=== PATIENT | female | born 2000 | race Caucasian/White ===

== ENCOUNTER 2019-01-03 03:15 | Observation (INO) | payer OTHER ==
--- NOTE | 2019-01-03 03:29 | EDPHY ---
H & P Stated Complaint: Abdominal Pain Time Seen by Provider: 01/03/19 03:28 HPI/ROS: HPI CHIEF COMPLAINT: Abdominal pain HISTORY OF PRESENT ILLNESS: Otherwise healthy 18-year-old female, presents to the emergency room with abdominal pain. States started an hour ago woke from sleep it is in the middle of her abdomen. She describes as sharp stabbing pain. Mid abdomen. Nonradiating. Work from sleep. Denies any diarrhea, denies vomiting. Denies chest pain shortness of breath denies fever. Denies urinary symptoms. Currently not on her menstrual cycle. Has an IUD. Past Medical History: Depression Past Surgical History: No recent surgery denies history of abdominal surgery Social History: Denies drugs alcohol tobacco. Family History: Noncontributory ROS REVIEW OF SYSTEMS: 10 Systems were reviewed and negative with the exception of the elements mentioned in the history of present illness. Exam Constitutional triage nursing summary reviewed, vital signs reviewed, awake/ alert. Eyes normal conjunctivae and sclera, EOMI, PERRLA. HENT normal inspection, atraumatic, moist mucus membranes, no epistaxis, neck supple/ no meningismus, no raccoon eyes. Respiratory clear to auscultation bilaterally, normal breath sounds, no respiratory distress, no wheezing. Cardiovascular rate normal, regular rhythm, no murmur, no edema, distal pulses normal. Gastrointestinal mild tenderness to palpation periumbilical, no peritoneal signs, no rebound, no guarding, normal bowel sounds, no distension, no pulsatile mass. Genitourinary no CVA tenderness. Musculoskeletal no midline vertebral tenderness, full range of motion, no calf swelling, no tenderness of extremities, no meningismus, good pulses, neurovascularly intact. Skin pink, warm, & dry, no rash, skin atraumatic. Neurologic awake, alert and oriented x 3, AAOx3, moves all 4 extremities equally, motor intact, sensory intact, CN II-XII intact, normal cerebellar, normal vision, normal speech. Psychiatric normal mood/affect. Heme/Lymph/Immune no lymphadenopathy. Differential Diagnosis: Differential diagnosis includes but is not limited to and in no particular order: Bowel obstruction, appendicitis, gallbladder disease, diverticulitis, colitis, enteritis, perforated viscus, gastritis, GERD , esophagitis, urinary tract infection, pyelonephritis, kidney stones Medical Decision Making: Plan for this patient IV establishment IV fluid bolus , IV Dilaudid 0.5 mg for pain control, IV Zofran 4 mg for nausea basic blood work, re-examination. Re-evaluation: 521: CT scan abdomen pelvis with without IV contrast faxed to me by [facility]. CT scan results back to me at 4:59 a.m. Possible thickened appendix seen on axial images soon there is a dilated fluid-filled appendix measures 8.5 mm with small appendical with concerning for possible appendicitis. I did go reexamine the patient's abdomen at this time 5:23 a.m. She does still have periumbilical abdominal pain moderately tender on exam. CT scan findings concerning for acute appendicitis. I have updated the patient IV Invanz has been ordered Plan for surgical consultation 545: Spoke with Dr. CELESTE Metzger. Discussed case in detail. He will consult see the patient. Patient made NPO . Patient given IV Invanz Patient admitted to Dr. Metzger. Source: Patient - Personal History LMP (Females 10-55): 1-7 Days Ago Current Tetanus/Diphtheria Vaccine: Yes Current Tetanus Diphtheria and Acellular Pertussis (TDAP): Yes - Medical/Surgical History Hx Asthma: No Hx Chronic Respiratory Disease: No Hx Diabetes: No Hx Cardiac Disease: No Hx Renal Disease: No Hx Cirrhosis: No Hx Alcoholism: No Hx HIV/AIDS: No Hx Splenectomy or Spleen Trauma: No Other PMH: tubercolosis, pylonephritis X 2, tonsilectomy - Social History Smoking Status: Current some day smoker Constitutional: Initial Vital Signs Temperature (C) 37.0 C 01/03/19 03:17 Heart Rate 87 01/03/19 03:17 Respiratory Rate 18 01/03/19 03:17 Blood Pressure 130/79 H 01/03/19 03:17 O2 Sat (%) 96 01/03/19 03:17 O2 Delivery Mode Room Air Allergies/Adverse Reactions: No Known Allergies Allergy (Verified 01/03/19 10:16) Home Medications: Medication Instructions Recorded FLUoxetine [Prozac 10 MG (*)] 10 mg PO DAILY 01/03/19 FLUoxetine [Prozac 20 MG (*)] 20 mg PO DAILY 01/03/19 Herbals/Supplements -Info Only 1 ea PO DAILY 01/03/19 Ibuprofen [Motrin (*)] 200 mg PO DAILY PRN 01/03/19 Levonorgestrel [MIRENA] 1 each IY .[id number] 01/03/19 oxyCODONE/APAP 5/325 [Percocet 1 - 2 tab PO Q4 PRN tab 01/03/19 5/325 (*)] Medical Decision Making - Diagnostics Imaging Results: Imaging Impressions Abdomen CT 01/03/19 03:52 Impression: 1. Mild appendicitis with small free fluid in the low pelvis. No abscess or evidence of perforation. 2. Well-positioned intrauterine device. Preliminary report given by [facility] to Emergency Department physician, Solitario Bran MD, at 4:59 a.m. on 01/03/2019. Final report concurs with initial preliminary interpretation. - Data Points Laboratory Results: Laboratory Results 01/03/19 03:35 01/03/19 03:35 Medications Given: Discontinued Medications Bupivacaine HCl (Sensorcaine 0.5% Vial) Confirm Administered Dose 30 ml .ROUTE .STK-MED ONE Stop: 01/03/19 06:02 Last Admin: 01/03/19 07:11 Dose: 30 ml Cefazolin Sodium (Ancef Syringe) Confirm Administered Dose 1 gm .ROUTE .STK-MED ONE Stop: 01/03/19 06:03 Last Admin: 01/03/19 07:14 Dose: Not Given Heparin Sodium (Porcine) (Heparin Sodium) Confirm Administered Dose 2,000 unit .ROUTE .STK-MED ONE Stop: 01/03/19 06:02 Last Admin: 01/03/19 07:14 Dose: Not Given Hydromorphone HCl (Dilaudid) 0.5 mg IVP EDNOW ONE Stop: 01/03/19 03:38 Last Admin: 01/03/19 03:43 Dose: 0.5 mg Hydromorphone HCl (Dilaudid) 0.2 - 0.4 mg IVP Q2HRS PRN PRN Reason: Pain, Severe Unable to Take PO Stop: 01/13/19 07:26 Last Admin: 01/03/19 13:54 Dose: 0.2 mg Sodium Chloride (Ns) 1,000 mls @ 0 mls/hr IV EDNOW ONE; Wide Open PRN Reason: Protocol Stop: 01/03/19 03:38 Last Admin: 01/03/19 03:43 Dose: 1,000 mls Ertapenem 1 gm/ Sodium (Chloride) 100 mls @ 200 mls/hr IV EDNOW ONE PRN Reason: Protocol Stop: 01/03/19 05:51 Last Admin: 01/03/19 05:45 Dose: 100 mls Potassium Chloride/Dextrose/Sod Cl (D5w 1/2 Ns W/ 20 Kcl/L) 1,000 mls @ 75 mls/ hr IV CONT KARLEY Stop: 07/02/19 07:29 Last Admin: 01/03/19 12:00 Dose: 1,000 mls Ondansetron HCl (Zofran) 4 mg IVP EDNOW ONE Stop: 01/03/19 03:38 Last Admin: 01/03/19 03:43 Dose: 4 mg Oxycodone/Acetaminophen (Percocet 5/325) 1 - 2 tab PO Q4 PRN PRN Reason: Pain, Severe Able to Take PO Stop: 01/13/19 07:26 Last Admin: 01/03/19 20:16 Dose: 2 tab Departure - Departure Disposition: [facility] Acute Clinical Impression: Acute appendicitis Qualifiers: Acute appendicitis type: with localized peritonitis Appendicitis gangrene presence: without gangrene Appendicitis perforation presence: without perforation Condition: Good
[2019-01-03] MEDS ORDERED: HYDROmorphONE/DILAUDID 2 MG/ML INJ IVP ONE (03:37)
[2019-01-03] MEDS ORDERED: NS 1,000 ML IV ONE (03:37)
[2019-01-03] MEDS ORDERED: ONDANSETRON 4 MG/2 ML VIAL IVP ONE (03:37)
[2019-01-03 03:46] LABS: PLATELET COUNT 283 10^3/uL (150-400)
[2019-01-03] MEDS ORDERED: IOHEXOL 350mgI/ML (OMNIPAQUE) 150 ML BTL IV ONE (04:04)
[2019-01-03] MEDS ORDERED: ERTAPENEM 1 GM in NS 100 ML IV ONE (05:22)
[2019-01-03] MEDS ORDERED: BUPIVACAINE 0.5% 30 ML SDV ONE (06:01)
[2019-01-03] MEDS ORDERED: HEPARIN 1000 UNIT/1 ML MDV ONE (06:01)
[2019-01-03] MEDS ORDERED: ceFAZolin 1 GM/5 ML SYR ONE (06:02)
[2019-01-03] MEDS ORDERED: fentaNYL 100 MCG/2 ML INJ ONE (06:38)
[2019-01-03] MEDS ORDERED: PROPOFOL/EMULSION 500 MG/50 ML BOTTLE IV ONE (06:38)
[2019-01-03] MEDS ORDERED: ROCURONIUM 50 MG/5 ML VIAL ONE (06:39)
[2019-01-03] MEDS ORDERED: DEXAMETHASONE 4 MG/ML VIAL ONE ×2 (06:39)
[2019-01-03] MEDS ORDERED: LIDOCAINE 2% 100 MG/5 ML SYR ONE (06:42)
--- NOTE | 2019-01-03 06:47 | PDGENHP ---
History & Physical Chief Complaint: rlq pain History of Present Illness: 18 FEMALE WITH SHORT HX OF ABDOMINAL PAIN ASSOCIATED WITH EMESIS AND INCREASED WITH MOVEMENT. WBC 15K. CT + FOR APPENDICITIS WITH APPENDICOLITH. SHE ALSO HAS IUD. NO DIARHEA, NO VAGINAL DISCHARGE. RISKS AND OPTIONS FULLY DISCUSSED. ADMIT FOR LAP APPE Pertinent Past, Social, Family History: PMH: TONSILLECTOMY, DEPRESSION. NKA. MEDS: PROZAC, MARLA IUD. ROS - 10 PT REVIEW EXCEPT FOR DEPRESSION. SOC : NONSMOKER. FAM: NONCONTRIBUTORY Relevant Physical Exam: GEN: HEALTHY 18 YO FEMALE IN NO ACUTE DISTRESS. HEENT: NONICTERIC, NO ORAL LESIONS,NO NODES, PERRLA. CHEST CLEAR. COR RR. ABD: SOFT , MILDLY DISTENDED, TENDER RLQ. EXTREM OK. NEURO PHYSIOLOGIC. PSYCH ALERT, COOPERATIVE, ORIENTED Cardiorespiratory Assessment: IMP: ATYPICAL ACUTE APPENDICITIS. PLAN: LAP APPE / RISKS AND OPTIONS FULLY DISCUSSED
[2019-01-03] MEDS ORDERED: KETOROLAC 30 MG/1 ML SDV ONE (07:01)
[2019-01-03] MEDS ORDERED: ONDANSETRON 4 MG/2 ML VIAL ONE (07:01)
--- NOTE | 2019-01-03 07:01 | PDANEPAE ---
ANE History of Present Illness appy for acute appendicitis ANE Past Medical History - Pulmonary History Hx Oxygen in Use at Home: No - Endocrine History Hx Diabetes: No ANE Review of Systems Review of Systems: - Exercise capacity Exercise capacity: >=4 METS ANE Patient History - Allergies Allergies/Adverse Reactions: No Known Allergies Allergy (Unverified 01/03/19 03:22) - Home Medications Home medications: home medication list seen and reviewed Home Medications: FLUoxetine 01/03/19 [Last Taken Unknown] - NPO status NPO Status: no food or drink >8 hours - Anes Hx Anes Hx: no prior problems - Smoking Hx Smoking Status: Current some day smoker - Alcohol Use Alcohol Use: Occasionally - Family Anes Hx Family Anes Hx: none ANE Labs/Vital Signs - Labs Result Diagrams: 01/03/19 03:35 01/03/19 03:35 - Vital Signs Blood Pressure: 115/67 Heart Rate: 79 Respiratory Rate: 16 O2 Sat (%): 97 Height: 170.18 cm Weight: 51.483 kg ANE Physical Exam - Airway Neck exam: FROM Mallampati Score: Class 1 Mouth exam: normal dental/mouth exam - Pulmonary Pulmonary: no respiratory distress - Cardiovascular Cardiovascular: regular rate and rhythym ANE Anesthesia Plan Anesthesia Plan: general endotracheal anesthesia Urgent/Emergent Case: Radha christine completed preop but documented later for safe timely pt care
[2019-01-03] MEDS ORDERED: SUGAMMADEX SODIUM 200 MG/2 ML VIAL IVP ONE (07:04)
[2019-01-03] MEDS ORDERED: DEXAMETHASONE 4 MG/ML VIAL IVP PRN (07:18)
[2019-01-03] MEDS ORDERED: fentaNYL 100 MCG/2 ML INJ IVP PRN (07:18)
[2019-01-03] MEDS ORDERED: ACETAMINOPHEN 500 MG TAB PO PRN (07:18)
[2019-01-03] MEDS ORDERED: METOCLOPRAMIDE 10 MG/2 ML VIAL IVP PRN (07:18)
[2019-01-03] MEDS ORDERED: HYDROCODONE/APAP 5/325 TAB PO PRN (07:18)
[2019-01-03] MEDS ORDERED: LR 500 ML IV PRN (07:18)
[2019-01-03] MEDS ORDERED: NALOXONE HCL 0.4 MG/ML INJ IVP PRN (07:18)
[2019-01-03] MEDS ORDERED: oxyCODONE IR 5 MG TAB PO PRN (07:18)
[2019-01-03] MEDS ORDERED: ALBUTEROL 3 ML DEYVIAL IH PRN (07:18)
[2019-01-03] MEDS ORDERED: ONDANSETRON 4 MG/2 ML VIAL IVP PRN ×2 (07:18→07:27)
[2019-01-03] MEDS ORDERED: PROMETHAZINE HCL 25 MG/ML INJ IVP PRN (07:18)
[2019-01-03] MEDS ORDERED: MEPERIDINE 25 MG/0.5 ML AMP IVP PRN (07:18)
[2019-01-03] MEDS ORDERED: PHENYLEPHRINE HCL 100 MCG/ML SYR IVP PRN (07:18)
[2019-01-03] MEDS ORDERED: LABETALOL HCL 5 MG/ML 20 ML MDV IVP PRN (07:18)
--- NOTE | 2019-01-03 07:26 | POSTOPPROG ---
Post Op Note Date of Operation: 01/03/19 Surgeon: Andrew Metzger Anesthesiologist: ASHLEY Anesthesia: GET(General Endotracheal) Pre-op Diagnosis: ACUTE APPENDICITIS Post-op Diagnosis: SAME Indication: PAIN Procedure: LAP APPE Findings: ACUTE SUPPURATIVE, NONPERFORATED APPENDICITIS Inf/Abcess present in the surg proc area at time of surgery?: Yes Depth: Organ Space EBL: Minimal Complications: 0 Specimen(s): APPENDIX
[2019-01-03] MEDS ORDERED: HYDROmorphONE/DILAUDID 1 MG/ML INJ IVP PRN (07:27)
[2019-01-03] MEDS ORDERED: ONDANSETRON DISINTEGRATING 4 MG TAB PO PRN (07:27)
[2019-01-03] MEDS ORDERED: D5W 1/2 NS W/ 20 KCl/L 1,000 ML IV SCH (07:30)
[2019-01-03] MEDS: OXYCODONE/APAP 5/325 TAB PO PRN ×4 (08:38→20:16)
--- NOTE | 2019-01-03 13:19 | POSTANESTH ---
Post Anesthetic Evaluation Cardiovascular Status: Normal, Stable Respiratory Status: Normal, Stable Level of Consciousness/Mental Status: Can Participate in Eval Pain Control: Adequate, Prn Tx Ordered Nausea/Vomiting Control: Adequate, Prn Tx Ordered Complications Possibly Related to Anesthesia: None Noted
[2019-01-03 16:45] VITALS: BP 107/72
--- NOTE | 2019-01-06 10:23 | GDS ---
[f rep st] DISCHARGE SUMMARY DISCHARGE NOTE: DISCHARGE DIAGNOSIS: Acute appendicitis. PROCEDURES: Abdominal CT scan. For full details, please see report. CONSULTATIONS: General Surgery by Dr. Metzger. HOSPITAL COURSE: This is a healthy 18-year-old female with a short history of abdominal pain associa jean with emesis who presented to the emergency department. A CT scan was positive for appendicitis w ith an appendicolith. Risks and options were fully discussed. Dr. Metzger took the patient to surgery for laparoscopic appendectomy. The patient tolerated the procedure well, and there were no complica tions. Later in the day, she tolerated a regular diet and was passing flatus. Her pain was controll ed on oral pain medication. She was ultimately discharged, the same day of surgery, home in good con dition with her mom. She was advised to follow up in our office in 2 weeks and to call with fever, c hills, worsening symptoms. PROCEDURES: Laparoscopic appendectomy. INTRAOPERATIVE FINDINGS: Acute suppurative, non-perforated appendicitis. /[id number]/MODL
== END 2019-01-03 20:27 | disposition home or self-care (01) ==
LOC: FOB 08:30
PROVIDERS: ADMIT Surgery; ATTEND Surgery
PROC: 0DTJ4ZZ Resection of Appendix, Percutaneous Endoscopic Approach (ICD-10-PCS; principal; 2019-01-03 06:30)
DX: K35.80 Unspecified acute appendicitis (principal); E86.9 Volume depletion, unspecified; F17.200 Nicotine dependence, unspecified, uncomplicated; F32.9 Major depressive disorder, single episode, unspecified; Z87.448 Personal history of other diseases of urinary system; Z97.5 Presence of (intrauterine) contraceptive device
CPT/HCPCS: 44970; 74177; 96361; 96365; 96375; 99285; G0378; J1100; J1170; J1335; J1885; J2001; J2405; J2704; J3010; Q9967

== ENCOUNTER 2019-02-03 20:14 | Emergency (ER) | payer OTHER ==
--- NOTE | 2019-02-03 20:55 | EDPHY ---
H & P Stated Complaint: R flank pain Time Seen by Provider: 02/03/19 20:54 HPI/ROS: CHIEF COMPLAINT: [ ] HISTORY OF PRESENT ILLNESS: [Need 4: Location, Duration, Severity, Quality, Context, Timing Modifying Factors, Associated S&S] REVIEW OF SYSTEMS: A comprehensive 10 point review of systems is otherwise negative aside from elements mentioned in the history of present illness. Source: Patient Exam Limitations: No limitations - Personal History LMP (Females 10-55): 1-7 Days Ago Current Tetanus/Diphtheria Vaccine: Yes - Medical/Surgical History Hx Asthma: No Hx Chronic Respiratory Disease: No Hx Diabetes: No Hx Cardiac Disease: No Hx Renal Disease: No Hx Cirrhosis: No Hx Alcoholism: No Hx HIV/AIDS: No Hx Splenectomy or Spleen Trauma: No Other PMH: tubercolosis, pylonephritis X 2, tonsilectomy, appy - Social History Smoking Status: Former smoker - Physical Exam Exam: General Appearance: [Alert, no distress] Eyes: [Pupils equal and round no pallor or injection] ENT, Mouth: [Mucous membranes moist] Respiratory: [There are no retractions, lungs are clear to auscultation] Cardiovascular: [Regular rate and rhythm] Gastrointestinal: [Abdomen is soft and nontender, no masses, bowel sounds normal] Neurological: [A&O, normal motor function, normal sensory exam, normal cranial nerves] Skin: [Warm and dry, no rashes] Musculoskeletal: [Neck is supple nontender] Extremities: [symmetrical, full range of motion] Psychiatric: [Patient is oriented X 3, there is no agitation] Constitutional: Initial Vital Signs Temperature (C) 36.6 C 02/03/19 20:19 Heart Rate 89 02/03/19 20:19 Respiratory Rate 18 02/03/19 20:19 Blood Pressure 113/64 02/03/19 20:19 O2 Sat (%) 98 02/03/19 20:19 O2 Delivery Mode Room Air Allergies/Adverse Reactions: No Known Allergies Allergy (Verified 01/03/19 10:16) Home Medications: Medication Instructions Recorded FLUoxetine [Prozac 10 MG (*)] 10 mg PO DAILY 01/03/19 FLUoxetine [Prozac 20 MG (*)] 20 mg PO DAILY 01/03/19 Herbals/Supplements -Info Only 1 ea PO DAILY 01/03/19 Ibuprofen [Motrin (*)] 200 mg PO DAILY PRN 01/03/19 Levonorgestrel [MIRENA] 1 each IY .[id number] 01/03/19 Medical Decision Making - Data Points Laboratory Results: 02/03/19 20:26 Urine Color COLORLESS Urine Appearance CLEAR Urine pH 8.0 H (5.0-7.5) Ur Specific Reeder 1.003 (1.002-1.030) Urine Protein NEGATIVE (NEGATIVE) Urine Ketones NEGATIVE (NEGATIVE) Urine Blood 2+ H (NEGATIVE) Urine Nitrate NEGATIVE (NEGATIVE) Urine Bilirubin NEGATIVE (NEGATIVE) Urine Urobilinogen NEGATIVE EU EU (0.2-1.0) Ur Leukocyte Esterase NEGATIVE (NEGATIVE) Urine RBC 5-10 /hpf H /hpf (0-3) Urine WBC 5-10 /hpf H /hpf (0-3) Ur Epithelial Cells TRACE /lpf /lpf (NONE-1+) Urine Mucus TRACE /lpf /lpf (NONE-1+) Urine Glucose NEGATIVE (NEGATIVE)
[2019-02-03] MEDS ORDERED: NS 1,000 ML IV ONE (20:56)
[2019-02-03] MEDS ORDERED: HYDROmorphONE/DILAUDID 2 MG/ML INJ IVP ONE (21:01)
[2019-02-03] MEDS ORDERED: HYDROmorphONE/DILAUDID 1 MG/ML INJ ONE (21:06)
[2019-02-03 21:27] LABS: PLATELET COUNT 235 10^3/uL (150-400)
[2019-02-03] MEDS ORDERED: KETOROLAC 15 MG/1 ML SDV IVP ONE (22:19)
[2019-02-03 22:28] VITALS: BP 134/66
--- NOTE | 2019-02-03 22:29 | EDPHY ---
H & P Stated Complaint: R flank pain Time Seen by Provider: 02/03/19 20:54 HPI/ROS: Chief complaint: Right flank pain History of present illness: This is a 18-year-old female who presents to the emergency department for right flank pain. She reports the onset of symptoms today. She reports right flank pain began and then she developed some discomfort with urination urinary frequency. She does have a history of urinary tract infections, however she usually gets urinary symptoms 1st and then the flank pain. She denies other associated signs or symptoms including no fevers, no nausea, vomiting or diarrhea, no abnormal vaginal discomfort or discharge. Review of systems: A 10 point review of systems was obtained and other than described above was negative - Personal History LMP (Females 10-55): 1-7 Days Ago Current Tetanus/Diphtheria Vaccine: Yes - Medical/Surgical History Hx Asthma: No Hx Chronic Respiratory Disease: No Hx Diabetes: No Hx Cardiac Disease: No Hx Renal Disease: No Hx Cirrhosis: No Hx Alcoholism: No Hx HIV/AIDS: No Hx Splenectomy or Spleen Trauma: No Other PMH: tubercolosis, pylonephritis X 2, tonsilectomy, appy - Social History Smoking Status: Former smoker - Physical Exam Exam: General Appearance: Alert, no distress. Eyes: Pupils equal and round no pallor or injection. ENT, Mouth: Mucous membranes moist. Respiratory: There are no retractions, lungs are clear to auscultation. Cardiovascular: Regular rate and rhythm. Gastrointestinal: Abdomen is soft and non tender, no masses, bowel sounds normal. Genitourinary: No CVA tenderness. Neurological: Alert, nontoxic. Skin: Warm and dry, no rashes. Musculoskeletal: Neck is supple non tender. Extremities are symmetrical, full range of motion. Psychiatric: Patient is oriented X 3, there is no agitation. Constitutional: Initial Vital Signs Temperature (C) 36.6 C 02/03/19 20:19 Heart Rate 89 02/03/19 20:19 Respiratory Rate 18 02/03/19 20:19 Blood Pressure 113/64 02/03/19 20:19 O2 Sat (%) 98 02/03/19 20:19 O2 Delivery Mode Room Air Allergies/Adverse Reactions: No Known Allergies Allergy (Verified 01/03/19 10:16) Home Medications: Medication Instructions Recorded FLUoxetine [Prozac 10 MG (*)] 10 mg PO DAILY 01/03/19 FLUoxetine [Prozac 20 MG (*)] 20 mg PO DAILY 01/03/19 Herbals/Supplements -Info Only 1 ea PO DAILY 01/03/19 Ibuprofen [Motrin (*)] 200 mg PO DAILY PRN 01/03/19 Levonorgestrel [MIRENA] 1 each IY .[id number] 01/03/19 Cephalexin [Keflex] 500 mg PO TID 10 Days cap 02/03/19 Medical Decision Making - Diagnostics Imaging Results: Imaging Impressions Abdomen/Pelvis CT 02/03/19 21:46 Impression: 1. No hydronephrosis, ureteral calculi, or perinephric inflammatory process. 2. No post appendectomy fluid collection or bowel obstruction. 3. Mild constipation. Findings discussed with Emergency Department physician assistant floor covering printer, ARIEL Godoy at 02/03/2019 22:21. Attention: This CT examination is specifically designed to evaluate patients who are clinically suspected of having acute obstructive uropathy. This examination does not use radiographic contrast, and as such, provides only a limited evaluation of the abdomen, pelvis and retroperitoneum. If there is further clinical suspicion for pathological conditions other than obstructive uropathy, a complete CT evaluation of the abdomen and pelvis utilizing intravenous, oral, and rectal contrast should be considered. Imaging: Discussed imaging studies w/ will call clerk Radiologist ED Course/Re-evaluation: Patient seen under the supervision of my secondary supervising physician Dr. José Miguel Munoz. Patient presents with right flank pain and urinary symptoms. I am concerned for urinary tract infection. However given right flank pain was the initial symptoms a CT was pursued to rule out kidney stone and negative. She has been IV hydrated. Given a g of Rocephin. She will be discharged home on Keflex. Home care is discussed. Return precautions are given. Patient voiced understanding and agreement with plan. Differential Diagnosis: Included but not limited to cystitis, pyelonephritis, nephrolithiasis, colitis, she has had an appendectomy - Data Points Laboratory Results: Laboratory Results 02/03/19 21:15 02/03/19 21:15 02/03/19 02/03/19 02/03/19 21:15 21:15 21:15 WBC 13.64 10^3/uL H 10^3/uL (3.80-9.50) RBC 4.12 10^6/uL L 10^6/uL (4.18-5.33) Hgb 12.6 g/dL g/dL (12.6-16.3) Hct 36.8 % L % (38.0-47.0) MCV 89.3 fL fL (81.5-99.8) MCH 30.6 pg pg (27.9-34.1) MCHC 34.2 g/dL g/dL (32.4-36.7) RDW 13.1 % % (11.5-15.2) Plt Count 235 10^3/uL 10^3/uL (150-400) MPV 10.2 fL fL (8.7-11.7) Neut % (Auto) 80.0 % H % (39.3-74.2) Lymph % (Auto) 12.4 % L % (15.0-45.0) [place] % (Auto) 6.6 % % (4.5-13.0) Eos % (Auto) 0.3 % L % (0.6-7.6) Baso % (Auto) 0.5 % % (0.3-1.7) Nucleat RBC Rel Count 0.0 % % (0.0-0.2) Absolute Neuts (auto) 10.91 10^3/uL H 10^3/uL (1.70-6.50) Absolute Lymphs (auto) 1.69 10^3/uL 10^3/uL (1.00-3.00) Absolute Monos (auto) 0.90 10^3/uL H 10^3/uL (0.30-0.80) Absolute Eos (auto) 0.04 10^3/uL 10^3/uL (0.03-0.40) Absolute Basos (auto) 0.07 10^3/uL 10^3/uL (0.02-0.10) Absolute Nucleated RBC 0.00 10^3/uL 10^3/uL (0-0.01) Immature Gran % 0.2 % % (0.0-1.1) Immature Gran # 0.03 10^3/uL 10^3/uL (0.00-0.10) Sodium 134 mEq/L L mEq/L (135-145) Potassium 3.7 mEq/L mEq/L (3.5-5.2) Chloride 102 mEq/L mEq/L (97-110) Carbon Dioxide 24 mEq/l mEq/l (22-31) Anion Gap 8 mEq/L mEq/L (6-14) BUN 16 mg/dL mg/dL (7-23) Creatinine 0.6 mg/dL mg/dL (0.6-1.0) Estimated GFR > 60 Glucose 101 mg/dL H mg/dL (70-100) Calcium 9.3 mg/dL mg/dL (8.5-10.4) Beta HCG, Qual NEGATIVE Urine Color Urine Appearance Urine pH Ur Specific [place] Urine Protein Urine Ketones Urine Blood Urine Nitrate Urine Bilirubin Urine Urobilinogen Ur Leukocyte Esterase Urine RBC Urine WBC Ur Epithelial Cells Urine Mucus Urine Glucose 02/03/19 20:26 WBC RBC Hgb Hct MCV MCH MCHC RDW Plt Count MPV Neut % (Auto) Lymph % (Auto) [place] % (Auto) Eos % (Auto) Baso % (Auto) Nucleat RBC Rel Count Absolute Neuts (auto) Absolute Lymphs (auto) Absolute Monos (auto) Absolute Eos (auto) Absolute Basos (auto) Absolute Nucleated RBC Immature Gran % Immature Gran # Sodium Potassium Chloride Carbon Dioxide Anion Gap BUN Creatinine Estimated GFR Glucose Calcium Beta HCG, Qual Urine Color COLORLESS Urine Appearance CLEAR Urine pH 8.0 H (5.0-7.5) Ur Specific [place] 1.003 (1.002-1.030) Urine Protein NEGATIVE (NEGATIVE) Urine Ketones NEGATIVE (NEGATIVE) Urine Blood 2+ H (NEGATIVE) Urine Nitrate NEGATIVE (NEGATIVE) Urine Bilirubin NEGATIVE (NEGATIVE) Urine Urobilinogen NEGATIVE EU EU (0.2-1.0) Ur Leukocyte Esterase NEGATIVE (NEGATIVE) Urine RBC 5-10 /hpf H /hpf (0-3) Urine WBC 5-10 /hpf H /hpf (0-3) Ur Epithelial Cells TRACE /lpf /lpf (NONE-1+) Urine Mucus TRACE /lpf /lpf (NONE-1+) Urine Glucose NEGATIVE (NEGATIVE) Medications Given: Discontinued Medications Hydromorphone HCl (Dilaudid) 0.5 mg IVP EDNOW ONE Stop: 02/03/19 21:02 Last Admin: 02/03/19 21:13 Dose: 0.5 mg Sodium Chloride (Ns) 1,000 mls @ 0 mls/hr IV EDNOW ONE; Wide Open PRN Reason: Protocol Stop: 02/03/19 20:57 Last Admin: 02/03/19 21:13 Dose: 1,000 mls Ceftriaxone Sodium/Dextrose (Rocephin 1 Gm (Premix)) 50 mls @ 100 mls/hr IV EDNOW ONE PRN Reason: Protocol Stop: 02/03/19 22:48 Last Admin: 02/03/19 22:27 Dose: 50 mls Ketorolac Tromethamine (Toradol) 15 mg IVP EDNOW ONE Stop: 02/03/19 22:20 Last Admin: 02/03/19 22:24 Dose: 15 mg Departure - Departure Disposition: Home, Routine, Self-Care Clinical Impression: Acute pyelonephritis Condition: Good Instructions: Kidney Infection (ED) Additional Instructions: Follow-up with [facility] in the next 1-2 days for recheck Take antibiotics as prescribed until finished You can use ibuprofen 600 mg 3 times a day for the next 2-3 days for pain control If symptoms worsen or new symptoms develop return to the emergency room for recheck Referrals: WALE Reynaga,. [Primary Care Provider] - As per Instructions Prescriptions: Cephalexin [Keflex] 500 mg PO TID 10 Days cap
== END 2019-02-03 22:53 | disposition home or self-care (01) ==
DX: N10 Acute pyelonephritis (principal); E86.9 Volume depletion, unspecified; Z87.448 Personal history of other diseases of urinary system
CPT/HCPCS: 96365; J0696; J1170; J1885